=== PATIENT | female | born 1995 | race Caucasian/White ===

== ENCOUNTER 2017-04-29 22:29 | Emergency (ER) | payer OTHER ==
[~2017-04-29] VITALS: Ht 165.1 cm; Wt 122.8 kg
[2017-04-29 22:40] VITALS: BP 134/91
== END 2017-04-29 23:59 | disposition home or self-care (01) ==
LOC: ED 23:50
DX: S60.221A Contusion of right hand, initial encounter (principal); F17.200 Nicotine dependence, unspecified, uncomplicated; W22.03XA Walked into furniture, initial encounter; Y93.89 Activity, other specified; Y92.89 Other specified places as the place of occurrence of the external cause; Y99.0 Civilian activity done for income or pay
CPT/HCPCS: 99284

== ENCOUNTER 2017-08-26 12:10 | Emergency (ER) | payer OTHER ==
[~2017-08-26] VITALS: Ht 162.6 cm; Wt 125.7 kg
[2017-08-26 12:13] VITALS: BP 124/84
[2017-08-26 13:02] LABS: HEMATOCRIT 40.3 % (34.6-47.8); HEMOGLOBIN 13.5 g/dL (11.7-16.4); WHITE BLOOD COUNT 6.9 x10^3/uL (4.5-13.2)
[2017-08-26 13:23] LABS: BLOOD UREA NITROGEN 9 mg/dL (7-18)
== END 2017-08-26 15:07 | disposition home or self-care (01) ==
LOC: ED 14:50
DX: R60.0 Localized edema (principal); F17.200 Nicotine dependence, unspecified, uncomplicated
CPT/HCPCS: 36415; 80048; 82040; 84703; 85025; 93970; 99285

== ENCOUNTER 2017-10-06 21:07 | Emergency (ER) | payer OTHER ==
[~2017-10-06] VITALS: Ht 162.6 cm; Wt 123.6 kg
[2017-10-06 21:21] VITALS: BP 113/88
[2017-10-06] MEDS ORDERED: ACETAMINOPHEN 500 MG TABLET PO ONE (22:00)
[2017-10-06] MEDS ORDERED: ACETAMINOPHEN 500 MG TABLET ONE (22:46)
[2017-10-06 23:17] LABS: RAPID INFLUENZA A Negative (Negative); RAPID INFLUENZA B POSITIVE (Negative)
== END 2017-10-07 00:03 | disposition home or self-care (01) ==
LOC: ED 23:57
DX: J10.1 Influenza due to other identified influenza virus with other respiratory manifestations (principal); H66.91 Otitis media, unspecified, right ear; J40 Bronchitis, not specified as acute or chronic; J02.9 Acute pharyngitis, unspecified
CPT/HCPCS: 87400; 99284

== ENCOUNTER 2017-11-27 11:49 | Emergency (ER) | payer SELFPAY ==
[~2017-11-27] VITALS: Ht 162.6 cm; Wt 125.0 kg
[2017-11-27] MEDS ORDERED: KETOROLAC 30 MG/1 ML IM ONE (12:30)
[2017-11-27] MEDS ORDERED: KETOROLAC 30 MG/1 ML ONE (12:33)
[2017-11-27] MEDS ORDERED: ACETAMINOPHEN 500 MG TABLET ONE (12:47)
[2017-11-27] MEDS ORDERED: ACETAMINOPHEN 500 MG TABLET PO ONE (13:00)
[2017-11-27 16:57] VITALS: BP 114/48
== END 2017-11-27 17:00 | disposition home or self-care (01) ==
LOC: ED 16:40
DX: S16.1XXA Strain of muscle, fascia and tendon at neck level, initial encounter (principal); S23.3XXA Sprain of ligaments of thoracic spine, initial encounter; V49.9XXA Car occupant (driver) (passenger) injured in unspecified traffic accident, initial encounter; Y93.89 Activity, other specified; Y92.410 Unspecified street and highway as the place of occurrence of the external cause; Y99.8 Other external cause status
CPT/HCPCS: 70450; 72072; 72110; 72125; 72131; 99284

== ENCOUNTER 2018-01-01 12:41 | Emergency (ER) | payer SELFPAY ==
[~2018-01-01] VITALS: Ht 162.6 cm; Wt 126.8 kg
[2018-01-01 12:44] VITALS: BP 128/82
== END 2018-01-01 13:26 | disposition home or self-care (01) ==
LOC: ED 13:20
DX: S39.012A Strain of muscle, fascia and tendon of lower back, initial encounter (principal); X58.XXXA Exposure to other specified factors, initial encounter; Y93.89 Activity, other specified; Y92.89 Other specified places as the place of occurrence of the external cause; Y99.8 Other external cause status
CPT/HCPCS: 99281

== ENCOUNTER 2019-09-29 23:06 | Emergency (ER) | payer OTHER ==
[~2019-09-29] VITALS: Ht 162.6 cm; Wt 125.7 kg
--- NOTE | 2019-09-29 23:22 | NUR ---
EKG DONE IN TRIAGE
[2019-09-29] MEDS ORDERED: SODIUM CHLORIDE FLUSH 10ML SYR IVF ONE (23:30)
[2019-09-29 23:51] LABS: BASOPHILS # (AUTO) 0.04 x10^3/uL (0-0.1); BASOPHILS % (AUTO) 1 % (0-1); EOSINOPHILS # (AUTO) 0.36 x10^3/uL (0-0.4); EOSINOPHILS % (AUTO) 4 % (1-7); LYMPHOCYTES # (AUTO) 2.27 x10^3/uL (1-3.4); LYMPHOCYTES % (AUTO) 28 % (22-44); MD NO; MEAN CORPUSCULAR HEMOGLOBIN 29.1 pg (27.0-34.8); MEAN CORPUSCULAR HGB CONC 32.8 g/dL (32.4-35.8); MEAN CORPUSCULAR VOLUME 88.8 fL (80-100); MEAN PLATELET VOLUME 8.5 fL (7.4-10.4); MONOCYTES # (AUTO) 0.81 x10^3/uL (0.2-0.8); MONOCYTES % (AUTO) 10 % (2-9); NEUTROPHILS # (AUTO) 4.76 x10^3/uL (1.8-6.8); NEUTROPHILS % (AUTO) 58 % (42-75); PLATELET COUNT 369 x10^3/uL (130-400); RED BLOOD COUNT 4.65 x10^6/uL (3.82-5.3); RED CELL DISTRIBUTION WIDTH 14.1 % (9.6-15.2)
[2019-09-29 23:57] LABS: ALBUMIN 3.7 g/dL (3.4-5.0); ANION GAP 4 mmol/L (5-15); CALCIUM 8.8 mg/dL (8.5-10.1); CHLORIDE 110 mmol/L (98-107)
[2019-09-30 00:03] LABS: ALANINE AMINOTRANSFERASE 29 U/L (12-78); ALKALINE PHOSPHATASE 62 U/L (45-117); BILIRUBIN,TOTAL 0.3 mg/dL (0.2-1.0); CREATININE 0.76 mg/dL (0.55-1.02); TOTAL PROTEIN 7.5 g/dL (6.4-8.2); TROPONIN I < 0.015 ng/mL (0.000-0.045)
--- NOTE | 2019-09-30 01:22 | NUR ---
pt called to room from lobby
--- NOTE | 2019-09-30 01:36 | NUR ---
Patient into room, alert oriented. answers questions clearly and concisely. Chest xray and blood work already obtained. Awaiting results. Patient vital signs updated. Vital signs stable (see vital signs flowsheet) Awaiting reevaluation from provider.
[2019-09-30] MEDS ORDERED: KETOROLAC 60 MG/2 ML IM ONE (02:00)
[2019-09-30] MEDS ORDERED: METOCLOPRAMIDE 5 MG/ML, 2ML IM PRN (02:00)
--- NOTE | 2019-09-30 02:00 | NUR ---
Patient out of room to computed tomography imaging. Awaiting return and results.
[2019-09-30] MEDS ORDERED: METOCLOPRAMIDE 5 MG/ML, 2ML ONE (02:29)
[2019-09-30] MEDS ORDERED: KETOROLAC 60 MG/2 ML ONE (02:30)
[2019-09-30 02:47] LABS: FREE T4 (FREE THYROXINE) 1.03 ng/dL (0.76-1.46)
[2019-09-30 03:23] VITALS: BP 100/64
== END 2019-09-30 03:43 | disposition home or self-care (01) ==
LOC: ED 09-30 03:25
DX: R55 Syncope and collapse (principal); R51 Headache
CPT/HCPCS: 36415; 70450; 71046; 80053; 83880; 84439; 84443; 84484; 84703; 85025; 93005; 96372; 99284; J1885; J2765

== ENCOUNTER 2019-10-02 22:27 | Inpatient (IN) | payer OTHER ==
[~2019-10-02] VITALS: Ht 162.6 cm; Wt 128.7 kg
--- NOTE | 2019-10-02 23:51 | NUR ---
Pt alert and oriented, sitting on gurney. Pt reports on the she had an episode of light headedness that caused her to pass out. She reports having a headache and on-off lightheadedness since. Pt was seen in the ER earlier this week for this problem. Pt was placed on bedrest with no improvment. Pt took tylenol at 1500. Pt denies other medications or substance use. Pt's LMP mid-August.
[2019-10-03] MEDS ORDERED: DIPHENHYDRAMINE 25 MG CAPSULE PO ONE
[2019-10-03] MEDS ORDERED: KETOROLAC 30 MG/1 ML IM ONE
[2019-10-03] MEDS ORDERED: PROCHLORPERAZINE 5 MG/ML, 2ML IM ONE
[2019-10-03] MEDS ORDERED: PROCHLORPERAZINE 5 MG/ML, 2ML ONE (00:14)
[2019-10-03] MEDS ORDERED: KETOROLAC 30 MG/1 ML ONE (00:14)
[2019-10-03] MEDS ORDERED: DIPHENHYDRAMINE 25 MG CAPSULE ONE (00:14)
--- NOTE | 2019-10-03 00:35 | NUR ---
Pt resting on gurney watching videos on phone. Pt medicated per NOV. Pt denies needs at this time.
--- NOTE | 2019-10-03 00:55 | NUR ---
PT STATES NO CHANGES IN CONDITION. NAD. VSS. PTS FRIEND GIVEN SPRITE PER REQUEST. PT AND FRIEND DENY FURTHER NEEDS AT THIS TIME.
--- NOTE | 2019-10-03 01:16 | NUR ---
CONSENT FOR LP SIGNED BY ER MD, PT, AND THIS RN. LET SET UP DONE BY STEEL PICKLER. POC DISCUSSED. PT AND FRIEND DENY FURTHER NEEDS AT THIS TIME.
[2019-10-03] MEDS ORDERED: LIDOCAINE-MPF 1%, 2ML ONE (01:32)
[2019-10-03] MEDS ORDERED: LIDOCAINE-MPF 1%, 5ML ONE ×2 (01:34→01:42)
--- NOTE | 2019-10-03 01:44 | NUR ---
ADDITIONAL LIDO PROVIDED TO MD PER REQUEST.
[2019-10-03] MEDS ORDERED: LIDOCAINE 1%, 10ML INFIL ONE (02:00)
--- NOTE | 2019-10-03 02:14 | NUR ---
LP completed by ERP and PA. Pt tolerated well. Pt now resting on gurney. VS retaken. Family at bedside.
[2019-10-03 02:35] LABS: GLUCOSE, CSF 58 mg/dL (40-80); TOTAL PROTEIN,CSF 27 mg/dL (15-45)
--- NOTE | 2019-10-03 02:54 | NUR ---
Pt beginning to fall asleep on gurney. Pt repositioned self. Lights dimmed for comfort. Call light remains within reach. Pt mom at bedside.
--- NOTE | 2019-10-03 04:28 | NUR ---
Pt ambulatory to restroom. Pt aware of plan for admit and is agreeable.
--- NOTE | 2019-10-03 05:12 | NUR ---
HOSPITAL BED REQUESTED FROM HOUSEKEEPING
[2019-10-03] MEDS ORDERED: PROMETHAZINE 25 MG/ML, 1ML IM PRN (06:00)
[2019-10-03] MEDS ORDERED: ONDANSETRON 2MG/ML, 2ML IVPush PRN (06:00)
[2019-10-03] MEDS ORDERED: hydrALAzine 20 MG/ML, 1ML IVPush PRN (06:00)
[2019-10-03] MEDS ORDERED: morphine SULFATE 10 MG/ML, 1ML IVPush PRN (06:00)
--- NOTE | 2019-10-03 06:14 | NUR ---
Pt alert and resting on gurney. Mom at bedside. Call light within reach. Aware of estimated wait time for room and VU.
[2019-10-03 06:55] LABS: BASOPHILS # (AUTO) 0.03 x10^3/uL (0-0.1); BASOPHILS % (AUTO) 0 % (0-1); EOSINOPHILS # (AUTO) 0.12 x10^3/uL (0-0.4); EOSINOPHILS % (AUTO) 2 % (1-7); LYMPHOCYTES % (AUTO) 23 % (22-44); MD NO; MEAN CORPUSCULAR HGB CONC 33.2 g/dL (32.4-35.8); MEAN CORPUSCULAR VOLUME 87.4 fL (80-100); MEAN PLATELET VOLUME 8.5 fL (7.4-10.4); MONOCYTES # (AUTO) 0.55 x10^3/uL (0.2-0.8); MONOCYTES % (AUTO) 8 % (2-9); NEUTROPHILS # (AUTO) 5.04 x10^3/uL (1.8-6.8); NEUTROPHILS % (AUTO) 68 % (42-75); PLATELET COUNT 302 x10^3/uL (130-400); RED BLOOD COUNT 4.45 x10^6/uL (3.82-5.3)
[2019-10-03 07:09] LABS: ALANINE AMINOTRANSFERASE 25 U/L (12-78); ALBUMIN 3.2 g/dL (3.4-5.0); ANION GAP 6 mmol/L (5-15); CALCIUM 8.6 mg/dL (8.5-10.1); CHLORIDE 110 mmol/L (98-107)
[2019-10-03 07:19] LABS: ALKALINE PHOSPHATASE 58 U/L (45-117); BILIRUBIN,TOTAL 0.3 mg/dL (0.2-1.0); TOTAL PROTEIN 6.5 g/dL (6.4-8.2)
--- NOTE | 2019-10-03 07:20 | NUR ---
RECEIVED REPORT FROM DHARA PACHECO RN. [facility]. VSS. HOSPITAL BED REQUESTED FROM [facility].
--- NOTE | 2019-10-03 07:34 | NUR ---
REPORT GIVEN TO JESSE, RECEIVING RN. ALL QUESTIONS ANSWERED. AWAITING PT TRANSPORT.
[2019-10-03 07:35] LABS: FREE T4 (FREE THYROXINE) 1.15 ng/dL (0.76-1.46)
[2019-10-03 07:58] VITALS: BP 117/84
[2019-10-03] MEDS ORDERED: DEXAMETHASONE 4 MG/ML, 1ML IVPush ONE (11:00)
[2019-10-03] MEDS ORDERED: MAGNESIUM SULFATE/D5W 100 ML IV ONE (11:00)
[2019-10-03] MEDS ORDERED: VALPROATE SODIUM 100 MG/ML, 5ML IV ONE (11:00)
[2019-10-03] MEDS ORDERED: VALPROATE SODIUM 500 MG in SODIUM CHLORIDE 0.9% 100 ML IV ONE (11:30)
[2019-10-03 13:41] VITALS: BP 99/65
[2019-10-03] MEDS: ACETAMINOPHEN 325 MG TABLET PO PRN (13:59)
[2019-10-03] MEDS ORDERED: GADOTERATE 7.5 MMOL/15 ML SYR ONE (15:24)
[2019-10-03 18:47] VITALS: BP 104/74
[2019-10-04 00:51] VITALS: BP 91/62
[2019-10-04 06:32] VITALS: BP 101/67
[2019-10-04] MEDS: ACETAMINOPHEN 325 MG TABLET PO PRN (08:27)
[2019-10-04] MEDS ORDERED: DEXAMETHASONE 4 MG/ML, 1ML IVPush ONE (09:30)
[2019-10-04] MEDS ORDERED: SODIUM CHLORIDE 0.9% 1,000ML IVBOLUS ONE (09:30)
[2019-10-04] MEDS ORDERED: PROCHLORPERAZINE 5 MG/ML, 2ML IVPush ONE ×2 (09:30→18:00)
[2019-10-04] MEDS ORDERED: LORazepam 2 MG/ML, 1ML IVPush ONE (11:00)
[2019-10-04 12:37] VITALS: BP 97/63
[2019-10-04] MEDS: DIHYDROERGOTAMINE 1 MG/ML, 1ML IM SCH ×2 (18:00→20:35)
[2019-10-04] MEDS ORDERED: DIPHENOXYLATE/ATROPINE TABLET PO PRN (18:30)
[2019-10-04 18:32] LABS: CALCIUM 9.3 mg/dL (8.5-10.1); CREATININE 0.93 mg/dL (0.55-1.02)
[2019-10-04 18:41] LABS: ANION GAP 8 mmol/L (5-15); CHLORIDE 117 mmol/L (98-107)
[2019-10-04 18:45] LABS: BASOPHILS % (AUTO) 0 % (0-1); EOSINOPHILS % (AUTO) 0 % (1-7); LYMPHOCYTES # (AUTO) 0.99 x10^3/uL (1-3.4); LYMPHOCYTES % (AUTO) 8 % (22-44); MEAN CORPUSCULAR HEMOGLOBIN 28.9 pg (27.0-34.8); MEAN CORPUSCULAR HGB CONC 32.8 g/dL (32.4-35.8); MEAN CORPUSCULAR VOLUME 88.2 fL (80-100); MEAN PLATELET VOLUME 8.7 fL (7.4-10.4); MONOCYTES # (AUTO) 0.45 x10^3/uL (0.2-0.8); MONOCYTES % (AUTO) 4 % (2-9); NEUTROPHILS # (AUTO) 11.01 x10^3/uL (1.8-6.8); NEUTROPHILS % (AUTO) 88 % (42-75); PLATELET COUNT 385 x10^3/uL (130-400); RED CELL DISTRIBUTION WIDTH 14.2 % (9.6-15.2)
[2019-10-04] MEDS: SODIUM CHLORIDE 0.9% 1,000 ML IV SCH (18:45)
[2019-10-04 18:46] LABS: MD NO
[2019-10-04 19:45] VITALS: BP_SYST 11; BP_SYST 110; BP_DIAS 72
[2019-10-04] MEDS: PROCHLORPERAZINE 5 MG/ML, 2ML IVPush SCH (20:35)
[2019-10-05 00:12] VITALS: BP 112/72
[2019-10-05 06:34] VITALS: BP 112/73
[2019-10-05] MEDS: ACETAMINOPHEN 325 MG TABLET PO PRN (07:38)
[2019-10-05 07:52] LABS: ANION GAP 10 mmol/L (5-15); CALCIUM 8.5 mg/dL (8.5-10.1); CHLORIDE 119 mmol/L (98-107); CREATININE 0.85 mg/dL (0.55-1.02)
[2019-10-05 07:57] LABS: BASOPHILS # (AUTO) 0.06 x10^3/uL (0-0.1); BASOPHILS % (AUTO) 1 % (0-1); EOSINOPHILS # (AUTO) 0.02 x10^3/uL (0-0.4); EOSINOPHILS % (AUTO) 0 % (1-7); LYMPHOCYTES # (AUTO) 2.42 x10^3/uL (1-3.4); LYMPHOCYTES % (AUTO) 27 % (22-44); MD NO; MEAN CORPUSCULAR HEMOGLOBIN 29.3 pg (27.0-34.8); MEAN CORPUSCULAR VOLUME 88.9 fL (80-100); MEAN PLATELET VOLUME 8.3 fL (7.4-10.4); MONOCYTES # (AUTO) 0.82 x10^3/uL (0.2-0.8); MONOCYTES % (AUTO) 9 % (2-9); NEUTROPHILS # (AUTO) 5.73 x10^3/uL (1.8-6.8); NEUTROPHILS % (AUTO) 63 % (42-75); PLATELET COUNT 358 x10^3/uL (130-400); RED BLOOD COUNT 4.83 x10^6/uL (3.82-5.3); RED CELL DISTRIBUTION WIDTH 14.5 % (9.6-15.2)
[2019-10-05] MEDS: PROCHLORPERAZINE 5 MG/ML, 2ML IVPush SCH ×3 (10:54→19:52)
[2019-10-05] MEDS: DIHYDROERGOTAMINE 1 MG/ML, 1ML IM SCH ×3 (10:56→19:15)
[2019-10-05] MEDS: SODIUM CHLORIDE 0.9% 1,000 ML IV SCH ×2 (11:25→19:16)
[2019-10-05 12:05] VITALS: BP 122/81
[2019-10-05 20:33] VITALS: BP 102/70
[2019-10-06 01:55] VITALS: BP 106/65
[2019-10-06 05:49] LABS: BASOPHILS # (AUTO) 0.04 x10^3/uL (0-0.1); BASOPHILS % (AUTO) 1 % (0-1); EOSINOPHILS # (AUTO) 0.07 x10^3/uL (0-0.4); EOSINOPHILS % (AUTO) 1 % (1-7); LYMPHOCYTES % (AUTO) 33 % (22-44); MD NO; MEAN CORPUSCULAR HGB CONC 32.9 g/dL (32.4-35.8); MEAN CORPUSCULAR VOLUME 88.3 fL (80-100); MEAN PLATELET VOLUME 8.8 fL (7.4-10.4); MONOCYTES # (AUTO) 0.81 x10^3/uL (0.2-0.8); MONOCYTES % (AUTO) 10 % (2-9); NEUTROPHILS # (AUTO) 4.51 x10^3/uL (1.8-6.8); NEUTROPHILS % (AUTO) 56 % (42-75); PLATELET COUNT 346 x10^3/uL (130-400); RED BLOOD COUNT 4.99 x10^6/uL (3.82-5.3); RED CELL DISTRIBUTION WIDTH 14.8 % (9.6-15.2)
[2019-10-06 05:51] LABS: ANION GAP 8 mmol/L (5-15); CALCIUM 8.6 mg/dL (8.5-10.1); CHLORIDE 116 mmol/L (98-107)
[2019-10-06 05:52] LABS: CREATININE 0.85 mg/dL (0.55-1.02)
[2019-10-06 07:11] VITALS: BP 102/69
[2019-10-06] MEDS ORDERED: ACET250T2 PO (08:07)
[2019-10-06] MEDS: PROCHLORPERAZINE 5 MG/ML, 2ML IVPush SCH (09:00)
[2019-10-06] MEDS: DIHYDROERGOTAMINE 1 MG/ML, 1ML IM SCH (09:00)
== END 2019-10-06 09:24 | disposition home or self-care (01) | DRG 102 ==
LOC: ED 23:50 → EDIP 10-03 04:54 → 3N 10-03 07:44 → DCLOUNGE 10-06 09:14
PROVIDERS: ADMIT Family Medicine; ATTEND Family Medicine
PROC: 009U3ZX Drainage of Spinal Canal, Percutaneous Approach, Diagnostic (ICD-10-PCS; principal; 2019-10-03)
DX: G43.109 Migraine with aura, not intractable, without status migrainosus (principal); G93.5 Compression of brain; G93.2 Benign intracranial hypertension; E66.9 Obesity, unspecified; G40.909 Epilepsy, unspecified, not intractable, without status epilepticus; G43.101 Migraine with aura, not intractable, with status migrainosus; G43.C0 Periodic headache syndromes in child or adult, not intractable
CPT/HCPCS: 36415; 89051; J3490; 70544; 70553; 80048; 80053; 82945; 83735; 84100; 84157; 84439; 84443; 85025; 87070; 87205; 87252; 93005; G0378; J1100; J1885; A9575; J0780; J1110; J2060; J7030; Q0163